=== PATIENT | male | born 1960 | race Caucasian/White ===

== ENCOUNTER 2021-06-01 15:08 | Observation (INO) ==
[2021-06-01] MEDS ORDERED: SODIUM CHLORIDE 0.9% 1,000 ML IV STA (16:20)
[2021-06-01] MEDS ORDERED: MEPERIDINE 50 MG/1 ML VIAL IV STA (16:20)
[2021-06-01] MEDS ORDERED: ONDANSETRON 4 MG/2 ML VIAL IV STA (16:20)
[2021-06-01] MEDS ORDERED: diphenhydrAMINE 50 MG/1 ML VIAL IV STA (16:22)
[2021-06-01] MEDS ORDERED: ASPIRIN CHEW 81 MG TABLET PO STA (16:24)
[2021-06-01] MEDS ORDERED: NITROGLYCERIN SL 0.4 MG TABLET SL STA (16:29)
[2021-06-01 17:16] LABS: INR 1.1; PT Patient Result 12.4 SECS (10.5-12.0); Partial Thromboplastin Time 29.1 SECS (23.9-33.8)
[2021-06-01 17:33] LABS: Alanine Aminotransferase 50 U/L (16-61); Albumin 3.5 G/DL (3.4-5.0); Alkaline Phosphatase 87 U/L (45-117); Aspartate Amino Transferase 32 U/L (0-37); Bilirubin,Total < 0.39 MG/DL (0.2-1.0); Blood Urea Nitrogen 9 MG/DL (7-18); Calcium 8.3 MG/DL (8.5-10.1); Carbon Dioxide 26 MMOL/L (21-32); Estimated Glom Filtration Rate 104 ML/MIN; Glucose 297 MG/DL (74-106); Osmolality,Calculated 286.5 MOS/KG (273-304); Potassium 4.1 MMOL/L (3.5-5.1); Sodium 139 MMOL/L (136-145); Total Protein 6.9 G/DL (6.4-8.2)
[2021-06-01 18:14] LABS: Basophils % 0.4 % (0.0-0.8); Eosinophils # 0.2 10*3/uL (0.0-0.87); Eosinophils % 2.8 % (0.00-10.9); Hematocrit 37.7 VOL% (42.0-52.0); Hemoglobin 12.7 GM/DL (14.0-18.0); Immature Granulocytes % 0.3 %; Immature Granulocytes Absolute 0.02 #; Lymphocytes # 2.3 10*3/uL (1.4-4.0); Lymphocytes % 34.1 % (21.2-54.2); Mean Corpuscular HGB Conc 33.7 GM/DL (32-36); Mean Corpuscular Volume 91.7 FL (87-102); Mean Platelet Volume 8.8 FL (9.6-12.0); Monocytes % 7.4 % (1.7-12.7); Platelet Count 150 T/CUMM (130-400); Red Blood Count 4.11 MC/CUMM (3.8-5.5); Red Cell Distribution Width 12.7 % (9.3-17.3); White Blood Count 6.8 T/CUMM (4-12)
[2021-06-01 19:08] LABS: Eosinophils 3 % (0-10); Lymphocytes 34 % (20-55); Platelet Estimate Adequate; Segmented Neutrophils 55 % (50-85); Total Cells Counted 100
[2021-06-01] MEDS ORDERED: ONDANSETRON 4 MG/2 ML VIAL IV PRN (19:31)
[2021-06-01] MEDS ORDERED: MAGNESIUM SULF RIDER 2 GM/50 ML PREMIX IV PRN ×2 (19:31)
[2021-06-01] MEDS ORDERED: GLUCAGON 1 MG VIAL IM PRN ×2 (19:31)
[2021-06-01] MEDS ORDERED: MAGNESIUM SULF RIDER 4 GM/100 ML PREMIX IV PRN (19:31)
[2021-06-01] MEDS ORDERED: DEXTROSE 50% 25 GM/50 ML VIAL IV PRN ×2 (19:31)
[2021-06-01] MEDS ORDERED: ENOXAPARIN 80 MG/0.8 ML SYRINGE SUBCUT SCH (20:00)
[2021-06-01] MEDS: ALPRAZolam 0.5 MG TABLET PO SCH (21:56)
[2021-06-01] MEDS: INSULIN LISPRO 100 UNIT/ML SUBCUT SCH (21:56)
[2021-06-01] MEDS: carvediloL 3.125 MG TABLET PO SCH (21:57)
[2021-06-01] MEDS ORDERED: diphenhydrAMINE CAP 25 MG CAPSULE PO PRN (23:00)
[2021-06-01] MEDS ORDERED: traMADol 50 MG TABLET PO PRN (23:01)
[2021-06-01] MEDS: LACTATED RINGERS 1,000 ML IV SCH (23:39)
[2021-06-02] MEDS: ALBUTEROL/IPRATROPIUM 3 ML NEB RESP TX SCH ×3 (01:20→12:35)
[2021-06-02 05:36] LABS: Basophils % 0.5 % (0.0-0.8); Eosinophils # 0.2 10*3/uL (0.0-0.87); Eosinophils % 3.6 % (0.00-10.9); Hematocrit 35.8 VOL% (42.0-52.0); Hemoglobin 12.4 GM/DL (14.0-18.0); Immature Granulocytes % 0.3 %; Immature Granulocytes Absolute 0.02 #; Lymphocytes % 34.4 % (21.2-54.2); Mean Corpuscular HGB Conc 34.6 GM/DL (32-36); Mean Corpuscular Volume 91.6 FL (87-102); Mean Platelet Volume 9.1 FL (9.6-12.0); Neutrophils % 52.2 % (38.7-73.9); Platelet Count 136 T/CUMM (130-400); Red Blood Count 3.91 MC/CUMM (3.8-5.5); Red Cell Distribution Width 12.9 % (9.3-17.3); White Blood Count 5.9 T/CUMM (4-12)
[2021-06-02 06:12] LABS: Microcytosis Slight; Platelet Estimate Adequate
[2021-06-02 06:23] LABS: Calcium 8.1 MG/DL (8.5-10.1); Osmolality,Calculated 280.4 MOS/KG (273-304); Potassium 3.6 MMOL/L (3.5-5.1)
[2021-06-02 08:14] LABS: Risk Ratio 3.35
[2021-06-02] MEDS ORDERED: ASPIRIN EC 325 MG TABLET PO SCH (09:00)
[2021-06-02] MEDS ORDERED: NICOTINE 21 MG/24 HR PATCH TRANSDERM SCH (09:00)
[2021-06-02] MEDS ORDERED: ESCITALOPRAM 10 MG TABLET PO SCH (09:00)
[2021-06-02] MEDS ORDERED: PANTOPRAZOLE 40 MG TABLET PO SCH (09:00)
[2021-06-02] MEDS ORDERED: ALPRAZolam 0.5 MG TABLET PO SCH (09:00)
[2021-06-02] MEDS ORDERED: lisinopriL 10 MG TABLET PO SCH (09:00)
[2021-06-02] MEDS: INSULIN LISPRO 100 UNIT/ML SUBCUT SCH ×3 (09:03→17:51)
[2021-06-02] MEDS: carvediloL 3.125 MG TABLET PO SCH (09:15)
[2021-06-02] MEDS: ALPRAZolam 0.5 MG TABLET PO SCH (09:16)
[2021-06-02] MEDS ORDERED: ALUM/MAG/SIMETH/LIDO VISC 1:1 30 ML BOTTLE PO ONE (10:08)
[2021-06-02] MEDS ORDERED: NITROGLYCERIN SL 0.4 MG TABLET SL PRN (10:09)
[2021-06-02] MEDS ORDERED: POTASSIUM CHLORIDE 20 MEQ TABLET PO ONE (10:33)
[2021-06-02] MEDS ORDERED: MAGNESIUM SULF RIDER 2 GM/50 ML PREMIX IV ONE (10:33)
[2021-06-02] MEDS ORDERED: FOLIC ACID 1 MG TABLET PO SCH (10:35)
[2021-06-02] MEDS ORDERED: CYANOCOBALAMIN 500 MCG TABLET PO SCH (10:35)
[2021-06-02] MEDS ORDERED: THIAMINE 100 MG TABLET PO SCH (10:35)
[2021-06-02] MEDS ORDERED: ACETAMINOPHEN 325 MG TABLET PO SCH (10:40)
[2021-06-02] MEDS ORDERED: traMADol 50 MG TABLET PO SCH (10:40)
[2021-06-02] MEDS ORDERED: ALUM/MAG/SIMETH/LIDO VISC 1:1 30 ML BOTTLE PO PRN (10:54)
[2021-06-02] MEDS: GABAPENTIN 100 MG CAPSULE PO SCH ×2 (11:21→15:48)
[2021-06-02] MEDS: LACTATED RINGERS 1,000 ML IV SCH ×2 (12:15→17:23)
[2021-06-02] MEDS: HYDROmorphone 2 MG/1 ML VIAL IV PRN ×2 (12:31→16:02)
[2021-06-02] MEDS ORDERED: ENOXAPARIN 40 MG/0.4 ML SYRINGE SUBCUT SCH ×3 (13:00→20:00)
[2021-06-02] MEDS ORDERED: DEXTROSE 50% 25 GM/50 ML VIAL IV PRN (13:09)
[2021-06-02] MEDS ORDERED: GLUCAGON 1 MG VIAL IM PRN (13:09)
[2021-06-02 14:47] LABS: Barbiturates Screen,Urine Negative (Negative); Benzodiazepines Screen,Urine Positive (Negative); Cannabinoid Screen,Urine Negative (Negative); Opiate Screen,Urine Positive (Negative); Phencyclidine Screen,Urine Negative (Negative)
[2021-06-02 16:04] VITALS: BP 136/71
[2021-06-02] MEDS ORDERED: ATORVASTATIN 40 MG TABLET PO SCH (21:00)
[2021-06-02] MEDS ORDERED: carvediloL 6.25 MG TABLET PO SCH (21:00)
[2021-06-03] MEDS ORDERED: MAGNESIUM OXIDE 400 MG TABLET PO SCH (09:00)
[2021-06-03] MEDS ORDERED: ASPIRIN EC 81 MG TABLET PO SCH (09:00)
== END 2021-06-02 19:57 | disposition home or self-care (01) ==
LOC: N.ED 15:08 → N.EDINP 15:08 → SUATTDRO 19:31 → N.4E 21:00
PROVIDERS: ADMIT Internal Medicine; ATTEND Hospitalist

== ENCOUNTER 2021-06-05 19:35 | Observation (INO) ==
[2021-06-05 20:15] LABS: Basophils % 0.6 % (0.0-0.8); Eosinophils # 0.2 10*3/uL (0.0-0.87); Eosinophils % 4.1 % (0.00-10.9); Hematocrit 36.2 VOL% (42.0-52.0); Hemoglobin 12.3 GM/DL (14.0-18.0); Immature Granulocytes % 0.4 %; Immature Granulocytes Absolute 0.02 #; Lymphocytes # 1.9 10*3/uL (1.4-4.0); Lymphocytes % 35.3 % (21.2-54.2); Mean Platelet Volume 8.6 FL (9.6-12.0); Monocytes % 6.7 % (1.7-12.7); Neutrophils % 52.9 % (38.7-73.9); Platelet Count 183 T/CUMM (130-400); Red Blood Count 3.98 MC/CUMM (3.8-5.5); Red Cell Distribution Width 12.3 % (9.3-17.3); White Blood Count 5.4 T/CUMM (4-12)
[2021-06-05] MEDS ORDERED: ONDANSETRON 4 MG/2 ML VIAL IV ONE (20:30)
[2021-06-05] MEDS ORDERED: fentaNYL 100 MCG/2 ML VIAL IV STA (20:30)
[2021-06-05 20:37] LABS: Alanine Aminotransferase 36 U/L (16-61); Albumin 3.4 G/DL (3.4-5.0); Alkaline Phosphatase 78 U/L (45-117); Aspartate Amino Transferase 22 U/L (0-37); Bilirubin,Total < 0.39 MG/DL (0.2-1.0); Blood Urea Nitrogen 6 MG/DL (7-18); Calcium 8.6 MG/DL (8.5-10.1); Carbon Dioxide 28 MMOL/L (21-32); Estimated Glom Filtration Rate 113 ML/MIN; Glucose 190 MG/DL (74-106); Osmolality,Calculated 283.3 MOS/KG (273-304); Sodium 141 MMOL/L (136-145)
[2021-06-05 21:10] LABS: Eosinophils 9 % (0-10); Lymphocytes 29 % (20-55); Polychromasia Few; Segmented Neutrophils 56 % (50-85); Total Cells Counted 100
[2021-06-05 21:11] LABS: Anisocytosis Slight; Platelet Estimate Increased
[2021-06-05] MEDS ORDERED: GLUCAGON 1 MG VIAL IM PRN ×2 (21:56→22:01)
[2021-06-05] MEDS ORDERED: DEXTROSE 50% 25 GM/50 ML VIAL IV PRN ×2 (21:56→22:01)
[2021-06-05] MEDS ORDERED: ONDANSETRON 4 MG/2 ML VIAL IV PRN (21:56)
[2021-06-06 04:38] VITALS: BP 133/80
[2021-06-06] MEDS ORDERED: INSULIN REGULAR 100 UNIT/ML SUBCUT SCH (07:30)
[2021-06-06] MEDS ORDERED: ALPRAZolam 0.5 MG TABLET PO SCH (09:00)
[2021-06-06] MEDS ORDERED: PANTOPRAZOLE 40 MG TABLET PO SCH (09:00)
[2021-06-06] MEDS ORDERED: ACETAMINOPHEN 325 MG TABLET PO SCH (09:00)
[2021-06-06] MEDS ORDERED: carvediloL 6.25 MG TABLET PO SCH (09:00)
[2021-06-06] MEDS ORDERED: GABAPENTIN 100 MG CAPSULE PO SCH (09:00)
[2021-06-06] MEDS ORDERED: lisinopriL 10 MG TABLET PO SCH (09:00)
[2021-06-06] MEDS ORDERED: ASPIRIN EC 81 MG TABLET PO SCH (09:00)
[2021-06-06] MEDS ORDERED: ENOXAPARIN 40 MG/0.4 ML SYRINGE SUBCUT SCH (09:00)
[2021-06-06] MEDS ORDERED: traMADol 50 MG TABLET PO SCH (09:00)
[2021-06-06] MEDS ORDERED: metFORMIN 500 MG TABLET PO SCH (09:00)
[2021-06-06] MEDS ORDERED: ATORVASTATIN 40 MG TABLET PO SCH (21:00)
== END 2021-06-06 11:45 | disposition home or self-care (01) ==
LOC: EDUNIT# → EDBD → N.ED 19:35 → N.EDINP 19:35 → N.4E 23:29
PROVIDERS: ADMIT Hospitalist; ATTEND Hospitalist

== ENCOUNTER 2021-06-07 20:51 | Observation (INO) ==
[2021-06-07] MEDS ORDERED: SODIUM CHLORIDE 0.9% 1,000 ML IV STA (21:32)
[2021-06-07] MEDS ORDERED: ALBUTEROL/IPRATROPIUM 3 ML NEB RESP TX STA (21:36)
[2021-06-07 21:57] LABS: Basophils % 0.3 % (0.0-0.8); Eosinophils # 0.1 10*3/uL (0.0-0.87); Hematocrit 37.6 VOL% (42.0-52.0); Hemoglobin 12.9 GM/DL (14.0-18.0); Immature Granulocytes % 0.4 %; Immature Granulocytes Absolute 0.04 #; Lymphocytes # 2.6 10*3/uL (1.4-4.0); Lymphocytes % 22.9 % (21.2-54.2); Mean Corpuscular HGB Conc 34.3 GM/DL (32-36); Mean Corpuscular Volume 91.3 FL (87-102); Mean Platelet Volume 8.6 FL (9.6-12.0); Monocytes % 6.4 % (1.7-12.7); Platelet Count 196 T/CUMM (130-400); Red Blood Count 4.12 MC/CUMM (3.8-5.5); Red Cell Distribution Width 12.9 % (9.3-17.3); White Blood Count 11.2 T/CUMM (4-12)
[2021-06-07 22:33] LABS: Bilirubin,Urine Negative (Negative); Blood, Urine Small mg/dL (Negative); Glucose,Urine (UA) Negative (Negative); Hyaline Casts,Urine 4 /LPF (0-3); Ketones,Urine Negative (Negative); Mucus,Urine Occasional /LPF (Occasional); Nitrite,Urine Negative (Negative); Protein,Urine Negative; RBC,Urine 1 /HPF (0-4); Squamous Epithelial Cell,Urine Occasional /HPF (0-10); Urine Appearance CLEAR (Clear); Urine Color Yellow (Yellow); Urine Specific Gravity 1.006 (1.001-1.035); Urine Urobilinogen < 2.0 EU/DL (0.2-1.0)
[2021-06-07 22:45] LABS: Calcium 8.7 MG/DL (8.5-10.1); Osmolality,Calculated 276.7 MOS/KG (273-304); Potassium 3.8 MMOL/L (3.5-5.1)
[2021-06-07 23:00] LABS: Barbiturates Screen,Urine Negative (Negative); Benzodiazepines Screen,Urine Positive (Negative); Cannabinoid Screen,Urine Negative (Negative); Opiate Screen,Urine Negative (Negative); Phencyclidine Screen,Urine Negative (Negative)
[2021-06-07] MEDS ORDERED: ALBUTEROL 2.5 MG/3 ML NEB RESP TX STA (23:48)
[2021-06-08 00:47] LABS: Salicylate < 2.8 MG/DL (2.8-20)
[2021-06-08 00:56] LABS: Acetaminophen < 2.0 UG/ML (10-30)
[2021-06-08 01:07] LABS: ABG Base Excess -1.4 MMOL/L (-2.5-2.5); ABG HCO3 25.8 MMOL/L (20-26); ABG Oxygen Saturation 78.4 % (95-100); ABG PCO2 54.2 MM HG (35-48); ABG PH 7.295 (7.35-7.45); ABG TCO2 27.4 MMOL/L (23-27)
[2021-06-08] MEDS ORDERED: methylPREDNISolone SOD SUC 125 MG/2 ML VIAL IV STA (01:45)
[2021-06-08] MEDS ORDERED: NICOTINE 21 MG/24 HR PATCH TRANSDERM PRN (02:17)
[2021-06-08] MEDS ORDERED: GLUCAGON 1 MG VIAL IM PRN (02:17)
[2021-06-08] MEDS ORDERED: ONDANSETRON 4 MG/2 ML VIAL IV PRN (02:17)
[2021-06-08] MEDS ORDERED: DEXTROSE 50% 25 GM/50 ML VIAL IV PRN (02:17)
[2021-06-08] MEDS ORDERED: ACETAMINOPHEN 325 MG TABLET PO PRN (02:17)
[2021-06-08] MEDS: SODIUM CHLORIDE 0.9% 1,000 ML IV SCH ×2 (04:54→13:20)
[2021-06-08] MEDS: ALBUTEROL/IPRATROPIUM 3 ML NEB RESP TX SCH ×2 (07:10→12:50)
[2021-06-08] MEDS ORDERED: methylPREDNISolone SOD SUC 40 MG/1 ML VIAL IV SCH (09:00)
[2021-06-08] MEDS ORDERED: LORazepam 2 MG/1 ML VIAL IM ONE (14:14)
[2021-06-08] MEDS ORDERED: LORazepam 2 MG/1 ML VIAL IV ONE (14:37)
[2021-06-08 17:17] VITALS: BP 143/68
== END 2021-06-08 18:20 ==
LOC: N.ED 20:51 → N.EDINP 20:51 → SUATTDRO 06-08 02:17 → N.EDINP 06-08 04:08 → N.5E 06-08 04:18
PROVIDERS: ADMIT Hospitalist; ATTEND Emergency Medicine

== ENCOUNTER 2022-01-25 12:25 | Observation (INO) ==
[2022-01-25] MEDS ORDERED: POTASSIUM CHLORIDE 20 MEQ TABLET PO PRN (13:19)
[2022-01-25] MEDS ORDERED: hydrALAZINE 20 MG/1 ML VIAL IV PRN (13:19)
[2022-01-25] MEDS ORDERED: ALUMINUM/MAGNES/SIMETH MAX STR 30 ML UDCUP PO PRN (13:19)
[2022-01-25] MEDS ORDERED: ONDANSETRON 4 MG/2 ML VIAL IV PRN (13:19)
[2022-01-25] MEDS ORDERED: guaiFENesin/DM ER 600-30 MG TABLET PO PRN (13:19)
[2022-01-25] MEDS ORDERED: ACETAMINOPHEN 325 MG TABLET PO PRN (13:19)
[2022-01-25] MEDS ORDERED: traZODone 50 MG TABLET PO PRN (13:19)
[2022-01-25] MEDS ORDERED: MAGNESIUM SULF RIDER 2 GM/50 ML PREMIX IV PRN (13:19)
[2022-01-25] MEDS ORDERED: MAGNESIUM SULF RIDER 4 GM/100 ML PREMIX IV PRN (13:19)
[2022-01-25] MEDS ORDERED: DOCUSATE SODIUM 100 MG CAPSULE PO PRN (13:19)
[2022-01-25] MEDS ORDERED: ENOXAPARIN 40 MG/0.4 ML SYRINGE SUBCUT SCH (13:30)
[2022-01-25] MEDS ORDERED: DEXTROSE 10% 250 ML BAG IV PRN (13:30)
[2022-01-25] MEDS ORDERED: GLUCAGON 1 MG VIAL IM PRN (13:30)
[2022-01-25 13:39] LABS: Basophils % 0.4 % (0.0-0.8); Eosinophils # 0.2 10*3/uL (0.0-0.87); Eosinophils % 2.5 % (0.00-10.9); Hematocrit 41.8 VOL% (42.0-52.0); Hemoglobin 14.2 GM/DL (14.0-18.0); Immature Granulocytes % 0.1 %; Immature Granulocytes Absolute 0.01 #; Lymphocytes # 1.8 10*3/uL (1.4-4.0); Lymphocytes % 23.9 % (21.2-54.2); Mean Corpuscular Volume 93.1 FL (87-102); Mean Platelet Volume 9.5 FL (9.6-12.0); Monocytes % 6.2 % (1.7-12.7); Neutrophils % 66.9 % (38.7-73.9); Platelet Count 213 T/CUMM (130-400); Red Blood Count 4.49 MC/CUMM (3.8-5.5); Red Cell Distribution Width 13.2 % (9.3-17.3); White Blood Count 7.3 T/CUMM (4-12)
[2022-01-25 13:52] LABS: Albumin 3.6 G/DL (3.4-5.0); Bilirubin,Total 0.4 MG/DL (0.20-1.00); Calcium 9.1 MG/DL (8.5-10.1); Osmolality,Calculated 278.8 MOS/KG (273-304); Potassium 4.2 MMOL/L (3.5-5.1); Total Protein 7.8 G/DL (6.4-8.2)
[2022-01-25 14:01] LABS: Thyroid Stimulating Hormone 1.38 uIU/ml (0.358-3.74)
[2022-01-25] MEDS ORDERED: ALUM/MAG/SIMETH/LIDO VISC 1:1 30 ML BOTTLE PO STA (14:06)
[2022-01-25] MEDS ORDERED: MAGNESIUM SULF RIDER 2 GM/50 ML PREMIX IV STA (14:17)
[2022-01-25 14:29] LABS: Barbiturates Screen,Urine Negative (Negative); Benzodiazepines Screen,Urine Positive (Negative); Cannabinoid Screen,Urine Negative (Negative); Opiate Screen,Urine Negative (Negative); Phencyclidine Screen,Urine Negative (Negative)
[2022-01-25] MEDS: NITROGLYCERIN 2% OINT 1 INCH/GM PACK TOP SCH ×2 (15:01→18:46)
[2022-01-25] MEDS ORDERED: traMADol 50 MG TABLET PO PRN (15:11)
[2022-01-25] MEDS: INSULIN LISPRO 100 UNIT/ML SUBCUT SCH ×2 (17:10→21:31)
[2022-01-25] MEDS: ALBUTEROL/IPRATROPIUM 3 ML NEB RESP TX SCH (19:30)
[2022-01-25] MEDS ORDERED: INSULIN GLARGINE 100 UNIT/ML SUBCUT SCH (21:00)
[2022-01-25] MEDS ORDERED: QUEtiapine 100 MG TABLET PO SCH (21:00)
[2022-01-25] MEDS: chlordiazePOXIDE 10 MG CAPSULE PO PRN (21:32)
[2022-01-26] MEDS: NITROGLYCERIN 2% OINT 1 INCH/GM PACK TOP SCH ×3 (00:08→14:05)
[2022-01-26] MEDS: ALBUTEROL/IPRATROPIUM 3 ML NEB RESP TX SCH ×3 (01:08→13:26)
[2022-01-26 05:42] LABS: Basophils % 0.4 % (0.0-0.8); Eosinophils # 0.2 10*3/uL (0.0-0.87); Eosinophils % 3.3 % (0.00-10.9); Hematocrit 38.5 VOL% (42.0-52.0); Hemoglobin 13.1 GM/DL (14.0-18.0); Immature Granulocytes % 0.4 %; Immature Granulocytes Absolute 0.02 #; Lymphocytes # 1.6 10*3/uL (1.4-4.0); Lymphocytes % 28.4 % (21.2-54.2); Mean Corpuscular Volume 93.2 FL (87-102); Mean Platelet Volume 9.1 FL (9.6-12.0); Monocytes % 8.7 % (1.7-12.7); Neutrophils % 58.8 % (38.7-73.9); Platelet Count 174 T/CUMM (130-400); Red Blood Count 4.13 MC/CUMM (3.8-5.5); Red Cell Distribution Width 13.1 % (9.3-17.3); White Blood Count 5.5 T/CUMM (4-12)
[2022-01-26 06:00] LABS: Albumin 2.9 G/DL (3.4-5.0); Bilirubin,Total 0.7 MG/DL (0.20-1.00); Calcium 8.3 MG/DL (8.5-10.1); Osmolality,Calculated 283.5 MOS/KG (273-304); Potassium 3.6 MMOL/L (3.5-5.1); Risk Ratio 5.72; Total Protein 6.6 G/DL (6.4-8.2); VLDL Cholesterol 78.8 MG/DL
[2022-01-26] MEDS: chlordiazePOXIDE 10 MG CAPSULE PO PRN (08:25)
[2022-01-26] MEDS ORDERED: lisinopriL 10 MG TABLET PO SCH (09:00)
[2022-01-26] MEDS ORDERED: ESCITALOPRAM 10 MG TABLET PO SCH (09:00)
[2022-01-26] MEDS ORDERED: atenoloL 50 MG TABLET PO SCH (09:00)
[2022-01-26] MEDS ORDERED: PANTOPRAZOLE 40 MG TABLET PO SCH (09:00)
[2022-01-26] MEDS ORDERED: SODIUM CHLORIDE 0.45% 1,000 ML IV SCH (10:00)
[2022-01-26] MEDS: INSULIN LISPRO 100 UNIT/ML SUBCUT SCH ×3 (11:20→17:32)
[2022-01-26] MEDS ORDERED: DIAZEPAM 5 MG TABLET PO ONE (11:59)
[2022-01-26] MEDS ORDERED: diphenhydrAMINE CAP 50 MG CAPSULE PO ONE (11:59)
[2022-01-26] MEDS ORDERED: MIDAZOLAM 2 MG/2 ML VIAL ONE (13:48)
[2022-01-26] MEDS ORDERED: fentaNYL 100 MCG/2 ML VIAL ONE (13:48)
[2022-01-26 19:12] VITALS: BP 149/77
== END 2022-01-26 18:00 | disposition home or self-care (01) ==
LOC: N.ED 12:25 → N.EDINP 12:25 → N.TELEN 21:51
PROVIDERS: ADMIT Internal Medicine Cardiovascular Disease; ATTEND Internal Medicine Cardiovascular Disease
PROC: CLCCHCL (ICD-10-PCS; 2022-01-26 13:45)